=== PATIENT | female | born 1955 | race Two or more races ===

== ENCOUNTER 2019-05-09 15:47 | Emergency (ER) | payer SELFPAY ==
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
[2019-05-09] MEDS ORDERED: HYDROcod/ACETAM 5/325 MG TABLET PO STA (16:19)
[2019-05-09] MEDS ORDERED: LIDOCAINE JELLY 2% 5 ML TUBE TOP STA (16:19)
[2019-05-09] MEDS ORDERED: IBUPROFEN 600 MG TABLET PO STA (16:19)
[2019-05-09 16:35] VITALS: BP 151/70
== END 2019-05-09 16:35 | disposition home or self-care (01) ==
LOC: ED 15:47
DX: T22.212A Burn of second degree of left forearm, initial encounter (principal); T22.232A Burn of second degree of left upper arm, initial encounter; T21.21XA Burn of second degree of chest wall, initial encounter; T20.10XA Burn of first degree of head, face, and neck, unspecified site, initial encounter; X12.XXXA Contact with other hot fluids, initial encounter; Y92.009 Unspecified place in unspecified non-institutional (private) residence as the place of occurrence of the external cause
CPT/HCPCS: 99282; 99284; A9270; J3490